=== PATIENT | male | born 1985 | race African-American/Black ===

== ENCOUNTER 2018-12-15 22:00 | Emergency (ER) | payer OTHER ==
[2018-12-15] MEDS ORDERED: Ketorolac Tromethamine 30 MG/ML VIAL ONE (22:24)
--- NOTE | 2018-12-15 23:02 | RAD ---
LUMBAR SPINE THREE VIEWS: INDICATIONS: Low back pain. COMPARISON: None. FINDINGS: There are five lumbar type vertebrae. Vertebral body heights and disk spaces are preserved. Spinal alignment is within normal limits. IMPRESSION: No acute osseous abnormality. POS: [id number]
== END 2018-12-15 23:14 | disposition home or self-care (01) ==
LOC: ERS 22:00
DX: S39.012A Strain of muscle, fascia and tendon of lower back, initial encounter (principal); X50.1XXA Overexertion from prolonged static or awkward postures, initial encounter; Y92.65 Oil rig as the place of occurrence of the external cause; Y99.0 Civilian activity done for income or pay
CPT/HCPCS: 72100; 96374; 99001; J1885